=== PATIENT | female | born 1990 | race Caucasian/White ===

== ENCOUNTER 2016-07-06 08:42 | Outpatient (CLI) | payer BC ==
[~2016-07-06] VITALS: Ht 165.1 cm; Wt 74.8 kg
[2016-07-06] VITALS (11 sets, daily range): BP systolic 101–120; BP diastolic 50–68
[~2016-07-06 08:42] MED LIST: PRENATAL TABLE1 EAC3 PO
[2016-07-06 09:44] LABS: ADD MIUA? YES; BILIRUBIN NEGATIVE; BLOOD LARGE; COLOR YELLOW ((YELLOW)); GLUCOSE (STRIP) NEGATIVE; KETONES 40; LEUKOCYTES SMALL; NITRITE NEGATIVE; PROTEIN (STRIP) NEGATIVE
[2016-07-06 09:46] LABS: EOSINOPHIL (%) 0 % (0-5); HEMATOCRIT 34.8 % (36.0-46.0); IMMATURE GRANULOCYTE (%) 0.4 % (0.0-0.7); IMMATURE GRANULOCYTE COUNT 0.1 K/uL; LYMPHOCYTE COUNT 0.7 K/uL (1.0-2.8); MCH 30.3 PG (29.0-34.0); MCHC 33.3 G/DL (30.0-36.0); MCV 90.9 FL (83-99); MONOCYTE (%) 1.2 % (3-12); MONOCYTE COUNT 0.2 K/uL (0-0.8); NEUTROPHIL (%) 94.4 % (45-76); NEUTROPHIL COUNT 16.8 K/uL (1.8-6.4); PLATELET COUNT 264 K/uL (156-360); RBC DIS.WIDTH-CV 13.4 % (11.8-14.6); RBC DIS.WIDTH-SD 44.1 % (39-53); RED BLOOD COUNT 3.83 M/uL (3.80-5.20); WHITE BLOOD COUNT 17.8 K/uL (4.1-10.2)
[2016-07-06 09:54] LABS: BACTERIA 2+; CASTS PRESENT /LPF; CRYSTALS NONE SEEN; EPITHELIAL CELLS 2+; PATHOLOGICAL CAST NONE SEEN; RED BLOOD CELLS TNTC /HPF (0-5); SMALL ROUND CELL PRESENT; UCUL ADDED? YES; YEAST-LIKE CELL NONE SEEN
[2016-07-06 10:02] LABS: ANION GAP 14 MEQ/L (2-14); CHLORIDE 104 MEQ/L (99-109); POTASSIUM 4.2 MEQ/L (3.7-5.4); SAMPLE HEMOLYSIS CHECK 0; SAMPLE ICTERIC CHECK 0; SAMPLE LIPEMIA CHECK 0; SODIUM 141 MEQ/L (136-147); TOTAL BILIRUBIN 0.3 MG/DL (0.0-1.0)
[2016-07-06 10:08] LABS: ALKALINE PHOSPHATASE 89 IU/L (3-129); GFR ESTIMATE (CALCULATED) > 59 mL/min/; GLUCOSE 100 mg/dL (70-99); UREA NITROGEN (BUN) 9 mg/dL (9-23)
[2016-07-06 10:17] LABS: MUCUS NONE SEEN
[2016-07-07] VITALS (18 sets, daily range): BP systolic 98–121; BP diastolic 52–67
[2016-07-08] VITALS (13 sets, daily range): BP systolic 101–119; BP diastolic 52–65
[2016-07-08 08:02] LABS: EOSINOPHIL (%) 0.1 % (0-5); HEMATOCRIT 30.2 % (36.0-46.0); IMMATURE GRANULOCYTE (%) 0.5 % (0.0-0.7); IMMATURE GRANULOCYTE COUNT 0.1 K/uL; LYMPHOCYTE COUNT 1.1 K/uL (1.0-2.8); MCH 30.6 PG (29.0-34.0); MCHC 32.8 G/DL (30.0-36.0); MCV 93.2 FL (83-99); MEAN PLAT.VOLUME 10.8 uM^3 (9.5-12.4); MONOCYTE (%) 8.5 % (3-12); MONOCYTE COUNT 1.4 K/uL (0-0.8); NEUTROPHIL (%) 84.3 % (45-76); PLATELET COUNT 230 K/uL (156-360); RBC DIS.WIDTH-CV 13.9 % (11.8-14.6); RBC DIS.WIDTH-SD 47.8 % (39-53); RED BLOOD COUNT 3.24 M/uL (3.80-5.20); WHITE BLOOD COUNT 16.7 K/uL (4.1-10.2)
[2016-07-09 00:11] VITALS: BP 105/56
[2016-07-09 03:47] VITALS: BP 111/64
[2016-07-09 07:18] VITALS: BP 111/56
[2016-07-09 09:46] VITALS: BP 114/66
[2016-07-09] MEDS ORDERED: ONDANSETRON4 MG/2 ML IV (09:59)
[2016-07-09] MEDS ORDERED: TAMSULOSIN HCL0.4 MG PO (09:59)
[2016-07-09] MEDS ORDERED: NORCO 5/3251 TABLET PO (09:59)
== END 2016-07-09 10:27 | disposition home or self-care (01) ==
LOC: LDRP-OP → 2WEST 08:43
PROVIDERS: Advanced Practice Midwife; Obstetrics & Gynecology
DX: O99.89 Other specified diseases and conditions complicating pregnancy, childbirth and the puerperium (principal); N13.30 Unspecified hydronephrosis; M54.5 Low back pain; Z3A.30 30 weeks gestation of pregnancy
CPT/HCPCS: 59025; 76770; 80053; 81003; 85025; 87086; G0378; J0696; J1170; J1885; J2270; J2405; J7050; J7120

== ENCOUNTER 2016-09-03 10:00 | Outpatient (CLI) | payer BC ==
[~2016-09-03 10:00] MED LIST changes: +NORCO 5/3251 TABLET PO; +ONDANSETRON4 MG/2 ML IV; +TAMSULOSIN HCL0.4 MG PO
[2016-09-03 10:16] VITALS: BP 118/69
[2016-09-04] MEDS ORDERED: IBUPROFEN800 MG PO (10:32)
== END 2016-09-03 12:55 | disposition home or self-care (01) ==
LOC: LDRP-OP 10:00 → 2WEST 10:01 → LDRP-OP 10-09 10:48
DX: O47.1 False labor at or after 37 completed weeks of gestation (principal); Z3A.39 39 weeks gestation of pregnancy
CPT/HCPCS: 59025; G0378

== ENCOUNTER 2016-09-03 18:29 | Inpatient (IN) | payer BC ==
[2016-09-03] VITALS (16 sets, daily range): BP systolic 87–132; BP diastolic 48–71
[~2016-09-03] VITALS: Ht 165.1 cm; Wt 77.0 kg
[2016-09-03 20:07] LABS: EOSINOPHIL (%) 0.1 % (0-5); HEMATOCRIT 34.5 % (36.0-46.0); IMMATURE GRANULOCYTE (%) 0.4 % (0.0-0.7); IMMATURE GRANULOCYTE COUNT 0.1 K/uL; LYMPHOCYTE COUNT 1.6 K/uL (1.0-2.8); MCH 29.5 PG (29.0-34.0); MCV 89.1 FL (83-99); MONOCYTE (%) 4.5 % (3-12); MONOCYTE COUNT 0.6 K/uL (0-0.8); NEUTROPHIL (%) 83.5 % (45-76); PLATELET COUNT 269 K/uL (156-360); RBC DIS.WIDTH-CV 13.8 % (11.8-14.6); RBC DIS.WIDTH-SD 44.7 % (39-53); RED BLOOD COUNT 3.87 M/uL (3.80-5.20); WHITE BLOOD COUNT 14.4 K/uL (4.1-10.2)
[2016-09-04] VITALS (20 sets, daily range): BP systolic 95–123; BP diastolic 51–70
[2016-09-04] MEDS ORDERED: IBUPROFEN800 MG PO (10:32)
[2016-09-05 07:15] VITALS: BP 114/69
[2016-09-05 15:34] VITALS: BP 115/70
[2016-09-05 22:55] VITALS: BP 106/61
[2016-09-06 07:37] VITALS: BP 106/63
== END 2016-09-06 13:34 | disposition home or self-care (01) | DRG 775 ==
LOC: LDRP-OP 18:29 → 2WEST 18:30 → LDRP-OP 10-09 13:03
PROVIDERS: Nurse Practitioner
PROC: 3E0S3CZ (ICD-10-PCS; principal; 2016-09-04)
PROC: 10E0XZZ Delivery of Products of Conception, External Approach (ICD-10-PCS; principal; 2016-09-04)
PROC: 00HU33Z Insertion of Infusion Device into Spinal Canal, Percutaneous Approach (ICD-10-PCS; principal; 2016-09-04)
PROC: 10907ZC Drainage of Amniotic Fluid, Therapeutic from Products of Conception, Via Natural or Artificial Opening (ICD-10-PCS; principal; 2016-09-04)
DX: O75.89 Other specified complications of labor and delivery (principal); N20.1 Calculus of ureter; O63.0 Prolonged first stage (of labor); O70.0 First degree perineal laceration during delivery; O26.53 Maternal hypotension syndrome, third trimester; O69.81X0 Labor and delivery complicated by cord around neck, without compression, not applicable or unspecified; O76 Abnormality in fetal heart rate and rhythm complicating labor and delivery; Z3A.39 39 weeks gestation of pregnancy; Z37.0 Single live birth
CPT/HCPCS: 59025; 74176; 85025; C1755; G0378; J0595; J2795; J3010; J7120; Q0169

== ENCOUNTER 2016-09-20 12:41 | Emergency (ER) | payer BC ==
[~2016-09-20] VITALS: Ht 165.1 cm; Wt 67.9 kg
[~2016-09-20 12:41] MED LIST changes: +IBUPROFEN800 MG PO
[2016-09-20 14:02] LABS: HEMATOCRIT 42.3 % (36.0-46.0); MCH 29.3 PG (29.0-34.0); MCHC 31.9 G/DL (30.0-36.0); MCV 91.8 FL (83-99); MEAN PLAT.VOLUME 10.7 uM^3 (9.5-12.4); RBC DIS.WIDTH-CV 12.8 % (11.8-14.6); RBC DIS.WIDTH-SD 43.1 % (39-53); RED BLOOD COUNT 4.61 M/uL (3.80-5.20)
[2016-09-20 14:03] LABS: PLATELET COUNT 388 K/uL (156-360)
[2016-09-20 14:15] LABS: CHLORIDE 107 mEq/L (99-109); POTASSIUM 3.8 mEq/L (3.7-5.4); SODIUM 142 mEq/L (136-147)
[2016-09-20 14:17] LABS: GLUCOSE 86 mg/dL (70-99)
[2016-09-20 14:18] LABS: ANION GAP 12 MEQ/L (2-14)
[2016-09-20 14:21] LABS: GFR ESTIMATE (CALCULATED) 53 mL/min/
[2016-09-20 14:22] LABS: UREA NITROGEN (BUN) 18 mg/dL (9-23)
[2016-09-20 14:30] LABS: ADD MIUA? YES; BILIRUBIN NEGATIVE; BLOOD LARGE; COLOR AMBER ((YELLOW)); GLUCOSE (STRIP) NEGATIVE; KETONES 20; LEUKOCYTES MODERATE; NITRITE NEGATIVE; PROTEIN (STRIP) 100; SPECIFIC GRAVITY 1.033 (1.000-1.030); UROBILINOGEN 0.2 MG/DL (0.2-1.0)
[2016-09-20 14:45] LABS: BACTERIA 2+ /HPF; EPITHELIAL CELLS RARE /HPF; MUCUS 2+ /LPF; RED BLOOD CELLS TNTC /HPF (0-5); UCUL ADDED? YES; WHITE BLOOD CELLS TNTC /HPF (0-5)
[2016-09-20] MEDS ORDERED: KEFLEX500 MG PO (16:47)
[2016-09-20] MEDS ORDERED: ZOFRAN ODT4 MG PO (16:47)
[2016-09-20] MEDS ORDERED: PERCOCET 5/31 TABLET PO (16:47)
[2016-09-20 17:37] VITALS: BP 108/64
== END 2016-09-20 17:41 | disposition home or self-care (01) ==
LOC: EME 12:41
DX: N20.0 Calculus of kidney (principal); Z87.442 Personal history of urinary calculi
CPT/HCPCS: 74176; 80048; 81003; 85027; 87086; 99281; 99285; J1885; J2405; J7030